=== PATIENT | female | born 1990 | race Two or more races ===

== ENCOUNTER 2016-07-10 19:39 | Emergency (ER) | payer OTHER ==
[~2016-07-10] VITALS: Ht 154.9 cm; Wt 50.8 kg
[2016-07-10 19:50] VITALS: BP 104/63
[2016-07-10 20:14] LABS: Urine Bilirubin Negative (Negative); Urine Blood TRACE /uL (Negative); Urine Color Yellow (Yellow); Urine Glucose Normal (Normal); Urine Ketone Negative (Negative); Urine Nitrite Negative (Negative); Urine RBC 1 /hpf (0 - 4); Urine Squamous Epithelial Cell FEW /hpf (<5); Urine Urobilinogen Normal (Negative); Urine pH 6.5 (5.0-8.0)
== END 2016-07-10 23:44 | disposition home or self-care (01) ==
LOC: ER 19:42
DX: S00.93XA Contusion of unspecified part of head, initial encounter (principal); W21.05XA Struck by basketball, initial encounter; Y93.67 Activity, basketball; Y99.8 Other external cause status; Y92.89 Other specified places as the place of occurrence of the external cause
CPT/HCPCS: 70450; 81001; 81025

== ENCOUNTER 2020-06-22 16:15 | Emergency (ER) | payer OTHER ==
[~2020-06-22] VITALS: Ht 154.9 cm; Wt 56.2 kg
[2020-06-22] MEDS ORDERED: cefTRIAXone SOD 1,000 MG VL IM ONE (17:30)
[2020-06-22 18:21] LABS: Urine Bacteria MOD /hpf (None Seen); Urine Blood Negative /uL (Negative); Urine Mucus MANY (None Seen); Urine WBC 6 /hpf (0 - 5)
[2020-06-22 19:03] VITALS: BP 97/60
== END 2020-06-22 19:11 | disposition home or self-care (01) ==
LOC: ER 16:15
DX: J03.90 Acute tonsillitis, unspecified (principal)
CPT/HCPCS: 81001; 81025; 96372; 99283; J0696